=== PATIENT | female | born 1950 | race Caucasian/White ===

== ENCOUNTER 2017-09-28 16:17 | Emergency (ER) | payer MEDICARE, MEDICAID ==
[2017-09-28 16:48] VITALS: BP 166/77; PULSE 90; O2SAT 97
--- NOTE | 2017-09-28 17:44 | ERPHSYRPT ---
- History of Present Illness Time Seen by Provider: 09/28/17 17:38 Source: patient Exam Limitations: no limitations Patient Subjective Stated Complaint: pt here for hives to forehead and hair since thursday, Triage Nursing Assessment: pt alert, resp easy, skin w/d/p. had red hives to forehead and hair Physician History: The patient is a 66-year-old female who complains of a itchy painful splotchy red rash over her left eyebrow, left fore head, and into her scalp on the left side her head since Thursday. She also states that she had some of the rash on the right side of her head in the scalp as well. On Thursday and Thursday she had some of the rash on the left side of her face including cheek and the left side of her neck that has disappeared. She had placed same-fdt-ibrsaat hydrocortisone cream on her neck and face. She's been taking Benadryl. She thought she was having allergic reaction because she used to take allergy shots. The swelling and redness around her left eye has improved. She comes in because she doesn't know what it is is causing this rash. Her past medical history is significant for gout, congestive heart failure, and hypertension. Timing/Duration: day(s) (3), gradual onset, improved Quality: itchy, painful Severity: moderate Location: scalp, face Possible Causes: no cause identified Modifying Factors: Improves With: antihistamine, prednisone (pt took 2 prednisone without relieft), topical steriods Associated Symptoms: rash, No difficulty breathing Allergies/Adverse Reactions: Penicillins Allergy (Verified 09/28/17 16:50) Sulfa (Sulfonamide Antibiotics) Allergy (Verified 09/28/17 16:50) Home Medications: Allopurinol [Allopurinol] 100 mg DAILY 09/28/17 [History] Levothyroxine Sodium 75 mcg DAILY 09/28/17 [History] Lisinopril [Lisinopril] 40 mg DAILY 09/28/17 [History] Oxybutynin [Oxytrol] 1 ea DAILY 09/28/17 [History] Hx Influenza Vaccination/Date Given: Yes Hx Pneumococcal Vaccination/Date Given: No Immunizations Up to Date: Yes - Review of Systems Constitutional: No Fever, No Chills Eyes: No Symptoms Ears, Nose, & Throat: No Symptoms Respiratory: No Cough, No Dyspnea Cardiac: No Chest Pain, No Edema, No Syncope Abdominal/Gastrointestinal: No Abdominal Pain, No Nausea, No Vomiting, No Diarrhea Genitourinary Symptoms: No Dysuria Musculoskeletal: No Back Pain, No Neck Pain Skin: Rash Neurological: No Dizziness, No Focal Weakness, No Sensory Changes Psychological: No Symptoms Endocrine: No Symptoms Hematologic/Lymphatic: No Symptoms Immunological/Allergic: No Symptoms All Other Systems: Reviewed and Negative - Past Medical History Neurological History: No Pertinent History Cardiac History: Congestive Heart Failure, Coronary Artery Disease, Hypertension , Myocardial Infarction ([place]) Respiratory History: Sleep Apnea Endocrine Medical History: Hypothyroidism Musculoskeletal History: Osteoarthritis Other Medical History: GOUT, SYTNHROID, ALLERGIES FOOD AND ENVIRONMENTAL - Past Surgical History Gastrointestinal: Cholecystectomy Female Surgical History: Hysterectomy - Social History Smoking Status: Never smoker Exposure to second hand smoke: No Drug Use: marijuana Patient Lives Alone: No - Female History Hx Last Menstrual Period: post Hx Now: No - Nursing Vital Signs Nursing Vital Signs: Initial Vital Signs Temperature 98.1 F 09/28/17 16:40 Pulse Rate 90 09/28/17 16:40 Respiratory Rate 18 09/28/17 16:40 Blood Pressure 166/77 09/28/17 16:40 O2 Sat by Pulse Oximetry 96 09/28/17 16:40 Pain Scale Pain Intensity 7 - Physical Exam General Appearance: no apparent distress, alert Eye Exam: PERRL/EOMI, eyes nml inspection Ears, Nose, Throat Exam: normal ENT inspection, pharynx normal, moist mucous membranes Neck Exam: normal inspection, non-tender, supple, full range of motion Respiratory Exam: normal breath sounds, lungs clear, No respiratory distress Cardiovascular Exam: regular rate/rhythm, normal heart sounds Gastrointestinal/Abdomen Exam: soft, mass, No tenderness Pelvic Exam: not done Rectal Exam: not done Back Exam: normal inspection, normal range of motion, No CVA tenderness, No vertebral tenderness Extremity Exam: normal inspection, normal range of motion Neurologic Exam: alert, oriented x 3, cooperative, normal mood/affect, sensation nml, No motor deficits Skin Exam: rash (There is a scattered red rash beginning at the left eyebrow extending up into the left fore head and over into the left scalp. Some of the rash has obvious scabs, especially those in the scalp. Some of the rash on the forehead is red, swollen. There are no obvious liquid filled blisters in the rash.) SpO2 Interpretation: normal SpO2: 97 Oxygen Delivery: Room Air - Progress Progress Note: 09/28/17 17:44 I discussed with the patient possibility that this may be an atypical presentation of shingles. I instructed her to take acyclovir 800 mg 5 times a day beginning immediately I also instructed her to follow up first thing tomorrow morning with her eye doctor if the condition has worsen so that she can be directed to a loca rn recovery. Counseled pt/family regarding: diagnosis, need for follow-up - Departure Time of Disposition: 17:46 Departure Disposition: Home Clinical Impression: Shingles Condition: Stable Critical Care Time: No Referrals: ZELDA NJ WOOLING MACHINE OPERATOR [Primary Care Provider] - Additional Instructions: You have a rash on your left forehead and left scalp that may be an atypical presentation of shingles. Take acyclovir 800 mg 5 times a day for 7 days. Take Tylenol and ibuprofen as needed. If you have worsening condition tomorrow morning, please contact your local eye doctor for immediate referral to an rn recovery. Prescriptions: Acyclovir 800 mg [Zovirax 800 mg] 800 mg PO 5XD #35 tablet
== END 2017-09-28 18:18 | disposition home or self-care (01) ==
LOC: ED 16:17
DX: B02.9 Zoster without complications (principal); Z79.899 Other long term (current) drug therapy; I50.9 Heart failure, unspecified; I25.10 Atherosclerotic heart disease of native coronary artery without angina pectoris; I10 Essential (primary) hypertension; I25.2 Old myocardial infarction; G47.30 Sleep apnea, unspecified; E03.9 Hypothyroidism, unspecified; M19.90 Unspecified osteoarthritis, unspecified site; M10.9 Gout, unspecified
CPT/HCPCS: 99283

== ENCOUNTER 2018-05-22 09:50 | Emergency (ER) | payer MEDICARE ==
[2018-05-22 10:09] VITALS: BP 147/91; PULSE 71; O2SAT 99
--- NOTE | 2018-05-22 10:32 | ERPHSYRPT ---
- History of Present Illness Time Seen by Provider: 05/22/18 10:21 Source: patient Exam Limitations: no limitations Patient Subjective Stated Complaint: pt here for possible shingles to top of head, with pain and swelling to left side of face. Triage Nursing Assessment: pt alert, walked in with walker, nurse unable to find rash, no swelling to face Physician History: The patient is a 67-year-old female complaining of a possible recurrence of shingles to her scalp. The patient had left sided scalp shingles last May that extended down over her left forehead across her eye. She saw an terrazzo polisher helper who confirmed that she had ophthalmologic shingles. She states she lost some vision in that eye. Last night she developed a small single rash on the right side of her scalp. She is feeling the same kind of pain and tingling down her right scalp and neck that she felt last time when it was on the left side. She is concerned she may have a recurrence of shingles. Her past medical history is significant for shingles, CHF, HTN, gout, and hypothyroidism. Timing/Duration: yesterday, gradual onset Quality: burning, painful Severity: moderate Location: scalp, neck Possible Causes: other (shingles) Associated Symptoms: rash Allergies/Adverse Reactions: Iodinated Contrast- Oral and IV Dye Allergy (Verified 05/22/18 10:11) meperidine [From Demerol] Allergy (Verified 05/22/18 10:11) turns green Penicillins Allergy (Verified 05/22/18 10:10) Sulfa (Sulfonamide Antibiotics) Allergy (Verified 05/22/18 10:10) Home Medications: Allopurinol 400 mg DAILY 09/28/17 [History] Levothyroxine Sodium 75 mcg DAILY 09/28/17 [History] Lisinopril 40 mg DAILY 09/28/17 [History] Oxybutynin [Oxytrol] 1 ea DAILY 09/28/17 [History] Carvedilol 3.125 mg [Coreg 3.125 MG] 1.25 mg BID 05/22/18 [History] Hx Tetanus, Diphtheria Vaccination/Date Given: No Hx Influenza Vaccination/Date Given: No Hx Pneumococcal Vaccination/Date Given: No Immunizations Up to Date: Yes - Review of Systems Constitutional: No Fever, No Chills Eyes: No Symptoms Ears, Nose, & Throat: No Symptoms Respiratory: No Cough, No Dyspnea Cardiac: No Chest Pain, No Edema, No Syncope Abdominal/Gastrointestinal: No Abdominal Pain, No Nausea, No Vomiting, No Diarrhea Genitourinary Symptoms: No Dysuria Musculoskeletal: No Back Pain, No Neck Pain Skin: Rash Neurological: No Dizziness, No Focal Weakness, No Sensory Changes Psychological: No Symptoms Endocrine: No Symptoms Hematologic/Lymphatic: No Symptoms Immunological/Allergic: No Symptoms All Other Systems: Reviewed and Negative - Past Medical History Neurological History: No Pertinent History Cardiac History: Congestive Heart Failure, Coronary Artery Disease, Hypertension , Myocardial Infarction ([place]) Respiratory History: Sleep Apnea Endocrine Medical History: Hypothyroidism Musculoskeletal History: Osteoarthritis Other Medical History: GOUT, SYTNHROID, ALLERGIES FOOD AND ENVIRONMENTAL - Past Surgical History Gastrointestinal: Cholecystectomy Female Surgical History: Hysterectomy - Social History Smoking Status: Never smoker Exposure to second hand smoke: No Drug Use: marijuana Patient Lives Alone: Yes - Female History Hx Last Menstrual Period: psot Hx Now: No - Nursing Vital Signs Nursing Vital Signs: Initial Vital Signs Temperature 97.0 F 05/22/18 10:01 Pulse Rate 71 05/22/18 10:01 Respiratory Rate 16 05/22/18 10:01 Blood Pressure 147/91 05/22/18 10:01 O2 Sat by Pulse Oximetry 98 05/22/18 10:01 Pain Scale Pain Intensity 5 - Physical Exam General Appearance: no apparent distress, obese Eye Exam: PERRL/EOMI, eyes nml inspection Ears, Nose, Throat Exam: normal ENT inspection, pharynx normal, moist mucous membranes Neck Exam: normal inspection, non-tender, supple, full range of motion Respiratory Exam: normal breath sounds, lungs clear, No respiratory distress Cardiovascular Exam: regular rate/rhythm, normal heart sounds Gastrointestinal/Abdomen Exam: soft, mass, No tenderness Pelvic Exam: not done Rectal Exam: not done Back Exam: normal inspection, normal range of motion, No CVA tenderness, No vertebral tenderness Extremity Exam: normal inspection, normal range of motion Neurologic Exam: alert, oriented x 3, cooperative, veterinary x ray operator II-XII nml as tested, normal mood/affect, nml cerebellar function, sensation nml, No motor deficits, No motor weakness, No facial droop, No slurred speech, No aphasia, No dysarthria , No EOM palsy Skin Exam: rash (Examination of the skin: There is a tiny red non-fluid filled macule on the right side of the vertex of the scalp. There is no surrounding erythema on the rest of the scalp or on the right side of the neck. Inspection of the skin around the eye is normal) SpO2: 99 Oxygen Delivery: Room Air - Departure Time of Disposition: 10:37 Departure Disposition: Home Clinical Impression: Shingles Condition: Stable Critical Care Time: No Referrals: ZELDA [place], MANAGING EDITOR [Primary Care Provider] - Additional Instructions: You may once again have another outbreak of shingles. Because it is so very early, it is difficult to know with certainty at this time. Because of your history of ophthalmologic shingles on the left side of your face, I want you to take acyclovir 800 mg 5 times a day for 10 days. If the condition worsens and begins to show up over your right face, immediately seek care from an terrazzo polisher helper. Otherwise, follow up with a neurologist for further evaluation. Prescriptions: Acyclovir 800 mg [Zovirax 800 mg] 800 mg PO 5XD #50 tablet
== END 2018-05-22 11:22 | disposition home or self-care (01) ==
LOC: ED 09:50
DX: B02.9 Zoster without complications (principal); Z79.899 Other long term (current) drug therapy
CPT/HCPCS: 99283